=== PATIENT | male | born 1985 | race Two or more races ===

== ENCOUNTER 2017-09-19 09:11 | Emergency (ER) | payer OTHER ==
[~2017-09-19] VITALS: Ht 185.4 cm; Wt 81.6 kg
--- NOTE | 2017-09-19 09:17 | NUR ---
AAOX3, BIBRA 58, [employer] FOR OTB, PT CAME IN FOR PANIC ATTACK. PATIENT APPEARS CALM AND COOPERATIVE AT THIS TIME. GS=510UV/DL IN THE FIELD. SKIN IS WARM AND DRY. RR IS EVEN AND UNLABORED WITH NAD NOTED. AWAITING MD FOR EVAL.
[2017-09-19 09:30] VITALS: BP 124/72
== END 2017-09-19 09:40 ==
LOC: ER 09:13
DX: F41.9 Anxiety disorder, unspecified (principal); E11.9 Type 2 diabetes mellitus without complications
CPT/HCPCS: A4606; Z7610